=== PATIENT | female | born 1960 | race Caucasian/White ===

== ENCOUNTER 2016-10-16 10:29 | Day surgery (SDC) | payer OTHER ==
[~2016-10-16] VITALS: Ht 165.1 cm; Wt 77.5 kg
[2016-10-16] VITALS (9 sets, daily range): BP systolic 97–115; BP diastolic 57–75; PULSE 51–66; RESP 12–17; O2SAT 94–100
[~2016-10-16 10:29] MED LIST: Lactated Ringer's 1,000 ML IV SCH
[2016-10-16] MEDS ORDERED: Neostigmine 1 mg/mL 10 mL Inj ONE (10:30)
[2016-10-16] MEDS ORDERED: Glycopyrrolate 0.2 MG/ML 1mL Inj ONE (10:30)
[2016-10-16] MEDS ORDERED: MetoCLOpramide 5 mg/mL 2 mL Inj ONE (10:30)
[2016-10-16] MEDS ORDERED: Ondansetron 2 mg/mL 2 mL Inj ONE (10:30)
[2016-10-16] MEDS ORDERED: Rocuronium 10 mg/mL 5 mL Inj ONE (10:30)
[2016-10-16] MEDS ORDERED: fentaNYL-PF 50 mCg/mL 2 mL Inj ONE (10:30)
[2016-10-16] MEDS ORDERED: Dexamethasone 4 mg/mL Inj ONE (10:30)
[2016-10-16] MEDS ORDERED: Propofol 10,000 mCg/mL 20 mL Inj ONE (10:30)
[2016-10-16] MEDS ORDERED: Lactated Ringer's 1,000 ML IV ONE (11:15)
[2016-10-16] MEDS ORDERED: NO HOME MEDICATIONS (11:44)
[2016-10-16] MEDS ORDERED: Lactated Ringer's 1,000 ML IV SCH (12:09)
[2016-10-16] MEDS ORDERED: Lactated Ringer's 500 ML IV PRN (12:09)
--- NOTE | 2016-10-16 12:09 | PCM.HPANE ---
Patient Data Surgeon Admitting Provider: Attending Provider:Eyad Nowak MD Primary Care Physician:Blaise Rivas MD Other Provider:Lety Reddingham Anesthesia Reason for Visit Gallstones Ht/WT & BMI Height (Feet): 5 Height (Inches): 5 Weight (Kilograms): 77.5 Body Mass Index 28.00 Allergies Coded Allergies: No Known Allergies (Verified , 12/12/03) Uncoded Allergies: No Known Allergies (Allergy, Severe, 12/28/04) Past Anesthesia History Anesthesia History: Denies:: Abnormal Airway, Anesthesia Reactions (sig nausea when in pain), Difficult Intubation, Fam Anesthesia Reaction, Fam Malignant Hypertherm, Malignant Hyperthermia Diabetes History Hx Diabetes?: No MRSA MRSA: No Medications Hypertension Medication: No Home Meds Incl Beta Leila: No Reported Medications [No Home Medications] No Conflict Check 10/16/16 History HEENT History: Denies:: Abnormal Airway Cataracts Difficult Intubation Dysphagia Glaucoma Hearing Problem Sinus Problem TMJ Hx of Heart Problems?: No Cardiovascular History: Denies:: AICD Abdominal Aortic Aneurism Atrial Fibrillation Coronary Artery Disease Edema Heart Murmur Hypertension Irregular Heartbeat Pacemaker Hx of Respiratory Problem?: No Respiratory History: Denies:: Asthma COPD Emphysema Oxygen Administration Pneumonia Tuberculosis Use of C-PAP Machine Use of Inhalers / NEBS Hx Neurologic Problems?: Yes Neurological History: Positive for:: Headaches (occasional- 3 x yearly) Denies:: Alzheimer's Disease CVA Dementia Multiple Sclerosis Parkinson's Disease Seizures TIA Hx of GI Problems?: Yes Gastrointestinal History: Positive for:: Gall Bladder Disease (current admission problem) Denies:: Cirrhosis Diverticulitis Gastrointestinal Bleeding Heartburn Hepatitis Hiatal Hernia Liver Disease Hx of Problems?: No Genitourinary History: Denies:: Kidney Stones Urinary Tract Infection Female Hx: Denies:: Currently Problems with Breasts? Skin History: Denies:: History Skin Disorders? Pressure Ulcers Hx Musculoskeletal Problems?: Yes Musculoskeletal History: Positive for:: Back Injury (chiropractor occasional- hip pain Left ) Denies:: Fibromyalgia Joint Replacement Musculoskeletal Trauma Myasthenia Gravis Osteoarthritis Rheumatoid Arthritis Systemic Lupus Hx of Psycho/Social Problems?: No Psycho Social History: Denies:: Anxiety Hx Depression Hx Surgeries?: Yes (ROMARIO/BSO ) Hx Any Other Health Problems?: Yes Other History: Denies:: Cancer Thyroid Disease History Blood Transfusions: Positive for:: Accept Blood Products? Denies:: Blood Transfusions Hx Diabetes: No Hx Alcohol Use: YesAlcoholic Drinks Per Day: 1-2 x monthlyHx Substance Use: NoHave You Smoked inLast 12 mo: No Stop/Bang Treated for Sleep Apnea?: No Do You Have a CPAP Machine?: No S-Snoring: Do You Snore Loudly: No T-Tired: feel tired, fatigued: No O-Obsered: Observed not breath: No P-Blood Pressure: treated: No B- Body Mass Index > 35 kg/m2: No A- Age over 50: Yes N- Neck Large Circumference: No G- Gender Male: No OCLT Total Score: 1 COLT Risk Assessment: Low Risk, <3 Yes Risk Assessment Category Category 1A: Patient has history of documented sleep apnea, and HAS NOT received any narcotic, sedative or anesthesia administration during this stay. Category 1B: Patient has history of documented sleep apnea, and HAS received any narcotic , sedative or anesthesia administration during this stay Category 2: Patient has SUSPECTED Obstructive Sleep Apnea, and HAS received any narcotic , sedative or anesthesia administration during this stay. Category 3: Patient has SUSPECTED Obstructive Sleep Apnea and HAS NOT received narcotic, sedative or anesthesia administration during this stay. Category 4: Outpatient in Procedural Areas with known sleep apnea or who screen positive for High Risk via the STOP/BANG questionnaire. Exam Exam Vital Signs Vital Signs Date Time Temp Pulse Resp B/P Pulse Ox O2 Delivery O2 Flow Rate FiO2 10/16/16 11:15 36.8 66 14 112/75 98 Room Air General Appearance: Oriented X3 HEENT/AIRWAY: MP 2 Lungs: Normal Air Movement Heart: Regular Rate/Rhythm Meds/Labs/Diagnostics Admission Meds Current Medications Celecoxib (CeleBREX) 200 mg STK-MED ONCE .ROUTE Last administered on 10/16/16 11:15; Start 10/16/16 at 11:01; Stop 10/16/16 at 11:02; Status DC Scopolamine (Transderm-Scop Patch) 1.5 mg STK-MED ONCE TOPICAL Last administered on 10/16/16 11:15; Start 10/16/16 at 11:01; Stop 10/16/16 at 11:02 ; Status DC Acetaminophen (Tylenol) 975 mg STK-MED ONCE PO Last administered on 10/16/16 11:15; Start 10/16/16 at 11:01; Stop 10/16/16 at 11:03; Status DC Gabapentin 600 mg 600 mg STK-MED ONCE .ROUTE Last administered on 10/16/16 11: 15; Start 10/16/16 at 11:02; Stop 10/16/16 at 11:03; Status DC Lactated Ringer's (Lr) 1,000 ml @ ud STK-MED ONCE IV Last administered on 10/16 11:15; Start 10/16/16 at 11:15; Stop 10/16/16 at 11:38; Status DC Plan Impression Patient chart reviewed, patient interviewed and anesthestic plan with risks, benefits, and alternatives discussed, and informed consent obtained. NPO Status: 1800 10/15 ASA Physical Status: ASA2 Mod Systemic Disease Anesthetic Plan: GA Bene/Risks/Altern/Consents: Yes HP Complete Prior to Induction: Yes Deshawn Mcdonnell MD Oct 16, 2016 12:09
[2016-10-16] MEDS ORDERED: EPHEDrine Sulfate 50 mg/mL Inj IVPUSH PRN (12:10)
[2016-10-16] MEDS ORDERED: Phenylephrine 10,000 mCg/mL Inj IVPUSH PRN (12:10)
[2016-10-16] MEDS ORDERED: HYDROmorphone 1 mg/mL Inj IVPUSH PRN (12:10)
[2016-10-16] MEDS ORDERED: MetoCLOpramide 5 mg/mL 2 mL Inj IVPUSH PRN (12:10)
[2016-10-16] MEDS ORDERED: Dexamethasone 4 mg/mL Inj IVPUSH PRN (12:10)
[2016-10-16] MEDS ORDERED: Ondansetron 2 mg/mL 2 mL Inj IVPUSH PRN (12:10)
[2016-10-16] MEDS ORDERED: Labetalol 5 mg/mL 4 mL Inj IV PRN (12:10)
[2016-10-16] MEDS ORDERED: Bupivacaine-MPF 0.25%/EPI 30 mL Inj INJ ONE (12:21)
[2016-10-16] MEDS ORDERED: oxyCODONE-Acetamin 5-325 mg Tablet PO PRN (13:35)
[2016-10-16] MEDS: fentaNYL-PF 50 mCg/mL 2 mL Inj IVPUSH PRN ×2 (13:44→14:02)
--- NOTE | 2016-10-16 14:00 | PCM.ANEP1 ---
Post Anesthesia Phase 1 PACU Phase 1 Assessment Vital Signs Vital Signs Date Time Temp Pulse Resp B/P Pulse Ox O2 Delivery O2 Flow Rate FiO2 10/16/16 13:55 51 14 104/57 95 Room Air 10/16/16 13:50 36.7 65 14 105/64 94 Room Air 10/16/16 13:45 54 12 97/67 98 Room Air 10/16/16 13:40 53 15 99/70 99 Simple Mask 8 10/16/16 13:35 59 15 115/70 100 Simple Mask 8 10/16/16 13:30 62 16 106/65 99 Simple Mask 8 10/16/16 13:25 36.6 62 17 99/74 99 Simple Mask 8 10/16/16 11:15 36.8 66 14 112/75 98 Room Air Anesthetic Administered: GA Level of Alertness: Awake, talking Pain: No Nausea or Vomiting: No Airway Device: Oralpharangeal Airway Oxygen Delivery: Room Air Lungs: Normal Air Movement Deshawn Mcdonnell MD Oct 16, 2016 14:00
--- NOTE | 2016-10-16 14:00 | PCM.ANEP2 ---
Post Anesthesia Evaluation ASA/CMS Post Anesthesia VS in Patient's Normal Range?: Yes Resp Stable; Airway Patent?: Yes CV Function & Hydration Stable: Yes Mental Status Recovered?: Yes Pain control Satisfactory?: Yes N/V Control Satisfactory?: Yes Deshawn Mcdonnell MD Oct 16, 2016 14:00
--- NOTE | 2016-10-16 15:56 | DRSVH ---
PROCEDURE: X-RAY OPERATIVE CHOLANGIOGRAM ([id number]) INDICATIONS: GALLSTONES COMPARISON: [facility], US, US ABDOMEN, 09/30/2016, 7:13. FINDINGS: Biliary ducts: The surgeon injected contrast into the biliary ducts after cannulation of the cystic duct stump. Visualized extrahepatic bile ducts are normal in caliber, without strictures. Intrahepa tic bile ducts not well-seen. Rounded intraluminal filling defect within the extrahepatic bile duct. No evidence for iatrogenic ductal injury. Duodenum: Contrast flows promptly through the sphincter of Oddi into the duodenum, which appears nor mal in caliber. IMPRESSION: 1. Small rounded intraluminal filling defect likely a gas bubble. Correlate with real-time examinati on. 2. Intrahepatic bile ducts not well-seen. Dictated by: Pascual EVANS Interpreted: Disha Manning MD on 10/16/2016 at 15:55 Transcribed by: MARGARET on 10/16/2016 at 15:56 Approved by: Disha Manning M.D. on 10/16/2016 at 16:58
--- NOTE | 2016-10-17 00:40 | OP ---
[address] [address] OPERATIVE REPORT PATIENT: RAMON MCKOY : 1960 MR#: [id number] ADMIT: 10/16/2016 JOB ID: [id number] DATE OF SURGERY: 10/16/2016 ANESTHESIA: General. PREOPERATIVE DIAGNOSIS(ES): Symptomatic cholelithiasis. POSTOPERATIVE DIAGNOSIS(ES): Symptomatic cholelithiasis. OPERATIVE PROCEDURE: Laparoscopic cholecystectomy with intraoperative cholangiogram. SURGEON: Eyad Nowak MD. GEOSPATIAL SPECIALIST: SONYA Nguyen (The internal medicine physician assistant was required for the safe and timely completion of the case.) COMPLICATIONS: None. ESTIMATED BLOOD LOSS: Less than 5 mL. CONDITION: Satisfactory. SPECIMEN: Gallbladder. FINDINGS: Gallbladder appeared unremarkable. The cholangiogram demonstrated normal appearing common bile duct with good flow into the duodenum. The flow was so brisk that I was unable to get a view of the hepatic duct; however, because I had a critical view of safety, I was confident in the anatomy and the purpose of the cholangiogram was to assess the common bile duct. Therefore, the cholecystectomy was completed. INDICATIONS/SIGNIFICANT HISTORY: The patient is a 56-year-old female who has been experiencing episodic right upper quadrant abdominal pain for a number of months. She had an ultrasound which demonstrated cholelithiasis. Was also read as having a slightly enlarged extrahepatic bile duct. She was referred to me and elected to undergo cholecystectomy. OPERATIVE TECHNIQUE: The patient was taken into the operating room and placed in supine position. General anesthesia was administered and the abdomen was prepped and draped in standard surgical fashion. A procedural pause was performed. Entry was gained into the abdomen through a supraumbilical incision using a 10 mm Optiview trocar. Pneumoperitoneum was achieved without complication. Local anesthetic was injected, followed by insertion of 5 mm ports in the subxiphoid as well as two in the right upper quadrant. Gallbladder was grasped and retracted cephalad. Dissection was begun to achieve critical view of safety. Critical view of safety was achieved with relative ease. The cystic artery was clipped and taken with cautery. A single clip was then placed on the cystic duct gallbladder junction and ductotomy made. Cholangiocatheter was inserted and cholangiogram obtained with findings as above. I could not get the contrast to flow into the hepatic ducts, but given that the purpose was to assess the supposedly enlarged common bile duct, I did not persist too long in attempts to visualize the hepatic ducts. Two more clips were then placed on the cystic duct and this was transected. The remainder of the dissection of the gallbladder off the cystic plate was then completed and the gallbladder removed through the umbilical port site. When extracting the gallbladder at the fascia, there was very minimal spillage of bile. No stones were spilled. The port site there was irrigated with saline. The fascia was then closed using 0 PDS and laparoscopic suture passer. The lateral ports removed under direct visualization followed by releasing of pneumoperitoneum and removal of the remaining port. Skin was closed using 4-0 Monocryl. The entire procedure was well tolerated without complication.
--- NOTE | 2016-10-17 17:17 | PATH ---
SURGICAL PATHOLOGY Attending Physician:Eyad Nowak MD CASE STATUS: Signed Out PATIENT NAME: RAMON MCKOY PID: [id number] : 1960 DATE COLLECTED:10/16/2016 23:29 SPECIMEN: Gallbladder CLINICAL HISTORY: CHOLELITHIASIS 1). GALLBLADDER FINAL DIAGNOSIS: 1.GALLBLADDER, CHOLECYSTECTOMY: CHOLELITHIASIS. GALLBLADDER MUCOSA WITH PATCHY SURFACE GASTRIC FOVEOLAR METAPLASIA AND NO EVIDENCE OF DYSPLASIA OR MALIGNANCY. ICD10 CODE K80.70 GROSS DESCRIPTION: Received in formalin, labeled with the patient' s name and "gallbladder", is one gallbladder measuring 6.0 x 2.5 x 2.0 cm. There are gi located at the cystic duct region. The serosal surface is smooth and glistening. Opening of the gallbladder reveals the wall to measure 0.4 cm in thickness. Within the cavity is found one stone measuring 1.4 x 1.3 x 1.3 cm. The mucosal surface is green-taylor and velvety with a few yellow thread-like features throughout. Certified Legal Investigator sections are submitted in one cassette. ([id number]) MICRO DESCRIPTION: See diagnosis. ICD-9 CODES: CPT CODES: 1: 49723 Electronically Signed Out Radha Phillips MD [facility] [address], [place] [address] Technical component performed at [facility], [facility] [address], [place], [address]
== END 2016-10-16 23:59 | disposition home or self-care (01) ==
LOC: SAS 10:29
PROVIDERS: ATTEND General Practice
DX: K80.20 Calculus of gallbladder without cholecystitis without obstruction (principal); G43.909 Migraine, unspecified, not intractable, without status migrainosus; Z87.891 Personal history of nicotine dependence
CPT/HCPCS: 47563; 74300; J1100; J2405; J2710; J2765; J3010; J7120; Q9967